=== PATIENT | female | born 1955 | race American Indian/Alaskan Native ===

== ENCOUNTER 2016-09-16 22:31 | Emergency (ER) | payer SELFPAY ==
[2016-09-16] MEDS ORDERED: TORADOL IV ONE (23:36)
[2016-09-17 00:39] LABS: Basophils % (Auto) 0.7 % (0.0-1.8); Eosinophils % (Auto) 7.2 % (0.0-4.3); Hemoglobin 12.9 gm/dl (10.1-14.3); Mean Corpuscular HGB Conc 35 % (30-34); Mean Corpuscular Hemoglobin 35 pg (28-32); Mean Corpuscular Volume 99 fl (79-97); Platelet Count 151 K/mm3 (140-440); Red Blood Count 3.74 M/mm3 (3.65-5.03); Red Cell Distribution Width 15.9 % (13.2-15.2); White Blood Count 4.9 K/mm3 (4.5-11.0)
[2016-09-17 00:56] LABS: Anion Gap 17 mmol/L; BUN/Creatinine Ratio 14.28; Blood Urea Nitrogen 10 mg/dL (7-17); Calcium 8.9 mg/dL (8.4-10.2); Carbon Dioxide 26 mmol/L (22-30); Chloride 103.2 mmol/L (98-107); Glucose 105 mg/dL (65-100); Potassium 4.3 mmol/L (3.6-5.0); Sodium 142 mmol/L (137-145)
[2016-09-17 01:32] LABS: Bilirubin,Urine NEG (Negative); Blood,Urine NEG (Negative); Ketones,Urine NEG (Negative); Leukocyte Esterase,Urine TR (Negative); Mucus,Urine FEW /HPF; Nitrite,Urine NEG (Negative); Protein,Urine <15 mg/dL mg/dL (Negative)
[2016-09-17] MEDS ORDERED: MORPHINE IV ONE (07:24)
--- NOTE | 2016-09-17 07:28 | Emergency Department Report ---
ED General Adult HPI - General Chief complaint: Abdominal Pain Stated complaint: SHARP PAIN/LOWER BACK Time Seen by Provider: 09/17/16 07:19 Source: patient Mode of arrival: Ambulatory Limitations: No Limitations - History of Present Illness Initial comments: 61-year-old female presents to the emergency department complaining of right lower back and flank pain. Pain began 5 days ago. She reports the pain has been constant and has begun to radiate around to her abdomen. Pain is described as sharp. She denies associated nausea, vomiting, diarrhea, fever, dysuria, or hematuria. She also denies trauma. There are no other complaints. -: Gradual, days(s) (5) Location: back, abdomen Radiation: abdomen Severity scale (0 -10): 10 Quality: sharp Consistency: constant Improves with: none Worsens with: none Associated Symptoms: denies other symptoms Treatments Prior to Arrival: none - Related Data Previous Rx's Medication Instructions Recorded Last Taken Type Methocarbamol [Robaxin TAB] 750 mg PO Q8H PRN #20 tablet 09/17/16 Unknown Rx Allergies Allergy/AdvReac Type Severity Reaction Status Date / Time No Known Allergies Allergy Verified 09/16/16 23:24 ED Review of Systems ROS: Stated complaint: SHARP PAIN/LOWER BACK Other details as noted in HPI Comment: All other systems reviewed and negative Gastrointestinal: as per HPI (right flank pain) Musculoskeletal: back pain ED Past Medical Hx - Past Medical History Previous Medical History?: No - Surgical History Past Surgical History?: No - Family History Family history: no significant - Social History Smoking Status: Never Smoker Substance Use Type: None - Medications Home Medications: Home Medications Medication Instructions Recorded Confirmed Last Taken Type Methocarbamol [Robaxin TAB] 750 mg PO Q8H PRN #20 tablet 09/17/16 Unknown Rx ED Physical Exam - General Limitations: No Limitations General appearance: alert, in no apparent distress - Head Head exam: Present: atraumatic, normocephalic - Eye Eye exam: Present: normal appearance, PERRL, EOMI - ENT ENT exam: Present: normal exam, normal orophraynx, mucous membranes moist - Neck Neck exam: Present: normal inspection, full ROM. Absent: tenderness - Respiratory Respiratory exam: Present: normal lung sounds bilaterally. Absent: respiratory distress - Cardiovascular Cardiovascular Exam: Present: regular rate, normal rhythm, normal heart sounds - GI/Abdominal GI/Abdominal exam: Present: soft, normal bowel sounds. Absent: distended, tenderness - Extremities Exam Extremities exam: Present: normal inspection, full ROM. Absent: tenderness - Back Exam Back exam: Present: normal inspection, full ROM, tenderness, muscle spasm ( right lumbar), paraspinal tenderness (right lumbar). Absent: CVA tenderness (R) , CVA tenderness (L), vertebral tenderness - Neurological Exam Neurological exam: Present: alert, oriented X3. Absent: motor sensory deficit - Skin Skin exam: Present: warm, dry, intact ED Course Vital Signs 09/16/16 09/16/16 09/17/16 23:24 23:48 03:29 Temperature 98.1 F 98.0 F Pulse Rate 71 64 Respiratory 20 20 18 Rate Blood Pressure 144/91 135/83 Blood Pressure [Left] O2 Sat by Pulse 100 100 Oximetry 09/17/16 06:30 Temperature 98.8 F Pulse Rate 69 Respiratory 18 Rate Blood Pressure Blood Pressure 124/81 [Left] O2 Sat by Pulse 100 Oximetry ED Medical Decision Making - Lab Data Result diagrams: 09/17/16 00:15 09/17/16 00:15 - Medical Decision Making Lab results reviewed and discussed with the patient. Patient reports feeling better following IV medication. Patient will be discharged home at this time to follow up with her primary care physician. - Differential Diagnosis back pain, muscle spasm, UTI Critical care attestation.: If time is entered above; I have spent that time in minutes in the direct care of this critically ill patient, excluding procedure time. ED Disposition Clinical Impression: Spasm of lumbar paraspinous muscle Disposition: DISCHARGED TO HOME OR SELFCARE Is pt being admited?: No Condition: Stable Instructions: Muscle Spasm (ED) Prescriptions: Methocarbamol [Robaxin TAB] 750 mg PO Q8H PRN #20 tablet PRN Reason: Pain Referrals: PRIMARY CARE, [Primary Care Provider] - 3-5 Days Time of Disposition: 08:27
[2016-09-17 09:10] VITALS: BP 123/89
== END 2016-09-17 08:59 | disposition home or self-care (01) ==
LOC: ED 22:31
DX: M62.830 Muscle spasm of back (principal)
CPT/HCPCS: 36415; 80048; 81001; 85025; 96374; 96375; 99283; J1885; J2270